=== PATIENT | female | born 1955 ===

== ENCOUNTER → 2020-08-28 15:40 | Outpatient (CLI) | payer MEDICARE, BC, SELFPAY ==
[2020-08-28 18:15] LABS: COVID19 -Nasal RAPID Negative (Negative)
== END ==
PROVIDERS: Visit Provider Physician Assistant
DX: Z11.59 Encounter for screening for other viral diseases (principal)
CPT/HCPCS: 87635

== ENCOUNTER 2020-08-30 08:23 | Day surgery (SDC) | payer MEDICARE, BC, SELFPAY ==
[2020-08-30 08:58] VITALS: BP 136/67; PULSE 93; RESP 16; TEMP 36.5; O2SAT 98
[2020-08-30 08:59] VITALS: BMI 36.2
[2020-08-30] MEDS: SODIUM CHLORIDE 0.9% 1,000 ML 70 ML IV (09:09)
[2020-08-30] MEDS: MIDAZOLAM 5 MG/5 ML VIAL IV (09:40)
[2020-08-30] MEDS: fentaNYL 250 MCG/5 ML INJ IV (09:40)
--- NOTE | 2020-08-30 09:40 | PM.HP.1 ---
History of Present Illness History of Present Illness Date Patient Seen: 08/30/20 Time Patient Seen: 09:41 Chief complaint: SDC Narrative: Patient is a pleasant 64-year-old female who presented for colonoscopy. She does have a personal history of colon polyps and a family history of colon cancer her mother was diagnosed in her 60s. Patient History Medical History Anxiety (Acute) Basal cell carcinoma (Acute) Constipation (Acute) Heartburn (Acute) History of endometriosis (Acute ~1979) Macular degeneration (Acute) Squamous cell carcinoma (Acute ~2017) Vertigo (Acute) Surgical History H/O bilateral breast reduction surgery (Acute) H/O knee surgery (Acute) History of cholecystectomy (Acute ~1985) History of tonsillectomy (Acute) Family & Social History Family History (Updated 08/30/20 @ 07:54 by Diane Gómez RN) Mother Colon cancer Social History: household members spouse,family Tobacco & Substance use: Smoking Status Never smoker alcohol intake frequency holiday/special occasion Substance Use Type does not use Meds Home Medications and Allergies Home Medications Medication Instructions Recorded Confirmed Type aspirin [Aspirin Low Dose] 81 mg PO DAILY 08/30/20 08/30/20 History ondansetron PO PRN PRN 08/30/20 History sertraline [Zoloft] 25 mg PO DAILY 08/30/20 08/30/20 History Allergies Allergy/AdvReac Type Severity Reaction Status Date / Time hydrocodone Allergy Intermediate resp Verified 08/30/20 08:57 distress latex Allergy Mild skin Verified 08/30/20 08:57 irritation contrast dye Allergy Severe Throat Uncoded 08/30/20 08:58 swelling, resp distress, lip swelling egg whites Allergy Severe Throat Uncoded 08/30/20 08:57 swelling, resp distress, lips swelling Review of Systems Review of Systems ROS: Yes All systems reviewed with the patient and are negative except as otherwise documented Exam Vital Signs (past 8 hours): - 08/30/20 08:58 Temperature 97.7 F Pulse Rate 93 H Respiratory Rate 16 Blood Pressure 136/67 Pulse Oximetry 98 Oxygen Delivery Method Room Air Const General: cooperative, healthy appearing, comfortable, well developed and well groomed Nutritional Appearance: well nourished Orientation: alert, awake and oriented x3 HENMT Head: normocephalic and atraumatic Resp Effort & Inspection: normal respiratory effort and able to speak in complete sentences Auscultation: clear to auscultation bilaterally Cardio Rate: regular rate Rhythm: regular rhythm Heart Sounds: S1 normal and S2 normal GI Palpation: soft and No tender Auscultation: normal bowel sounds Extrem Right lower extremity: no edema Left lower extremity: no edema
[2020-08-30 10:10] VITALS: BP 111/40; PULSE 70; RESP 16; TEMP 37.3; O2SAT 96
--- NOTE | 2020-08-30 10:11 | PM.OP.ENDO ---
Operative Date/Time/Diagnoses Date of procedure: 08/30/20 Time of procedure: 09:43 Procedure Notes Procedure in detail: Surgeon: Brynn Guevara DO Procedure: Colonoscopy Preoperative diagnosis: 1. Personal history colon polyps 2. Family history colon cancer -mother diagnosed in her 60s Postoperative diagnosis: 1. Mild diverticulosis in the sigmoid colon 2. Grade 1 internal hemorrhoids Medications: Conscious sedation using 5 mg IV of Midazolam and 100 mcg IV of Fentanyl Preanesthesia Assessment An H and P was performed/updated and the Px?s ASA class is 2. The procedure was discussed in detail with the patient. The potential risks and complications including infection, bleeding, missed lesions, perforation, need for surgery in case of perforation, prolonged hospital stay, and were explained. A brief question and answer period was allotted and once all questions were answered, informed consent was obtained. The patient was brought back to the procedure room and placed on standard monitoring. The patient?s vital signs were monitored continuously throughout the entire procedure. Prior to starting, a timeout was performed to confirm the patient?s identity, allergies, medications, and procedure. Procedure in detail The patient was placed in left lateral decubitus position and once adequate sedation was obtained a YINKA was performed. The digital rectal examination did not reveal any palpable lesions. The tip of the colonoscope was placed in the anal canal and advanced with some difficulty due to a tortuous colon, manual pressure was applied. We were able to advance all the way to the cecum which was identified by the appendiceal orifice and the ileocecal valve. Careful examination of all bernal of the colon was performed with irrigation of any residual stool. Second pass evaluation was completed in the ascending colon. Few small diverticulosis in the sigmoid colon Grade 1 internal hemorrhoids were noted on retroflexion The patient tolerated the procedure well and will be brought back to the recovery area to be discharged once criteria are met. The prep was judged to be good/excellent and adequate to identify polyps less than 5 mm. The withdrawal time was 9min. The total physician intraservice time was 21min. Complications There were no complications and estimated blood loss was minimal. Recommendations: Resume high-fiber diet Continue outPx medications Repeat colonoscopy in 5 years due to family history An emergency contact number was given to the patient for any complications related to the procedure
--- NOTE | 2020-08-30 10:13 | SUR.PHASEI ---
Report to [facility] pt stable with no pain or nausea
[2020-08-30 10:15] VITALS: BP 100/46; PULSE 63; RESP 13; TEMP 37.3; O2SAT 95
[2020-08-30 10:20] VITALS: BP 105/49; PULSE 78; RESP 16; TEMP 36.7; O2SAT 94
[2020-08-30 10:25] VITALS: BP 107/54; PULSE 74; RESP 18; TEMP 36.7; O2SAT 94
== END 2020-08-30 10:36 | disposition home or self-care (01) ==
PROVIDERS: Referring Provider Student in an Organized Health Care Education/Training Program; Visit Provider Student in an Organized Health Care Education/Training Program
PROC: 0DJD8ZZ Inspection of Lower Intestinal Tract, Via Natural or Artificial Opening Endoscopic (ICD-10-PCS; CPT 45378; principal; 2020-08-30 09:30)
DX: Z12.11 Encounter for screening for malignant neoplasm of colon (principal); Z86.010 Personal history of colon polyps; Z80.0 Family history of malignant neoplasm of digestive organs; K57.30 Diverticulosis of large intestine without perforation or abscess without bleeding; K64.0 First degree hemorrhoids
CPT/HCPCS: G0105; J2250; J3010